=== PATIENT | male | born 1980 | race African-American/Black ===

== ENCOUNTER 2021-10-21 17:24 | Emergency (ER) | payer SELFPAY ==
[~2021-10-21] VITALS: Ht 185.4 cm; Wt 109.0 kg
[2021-10-21 17:27] VITALS: BP 170/115
[2021-10-21] MEDS ORDERED: AMLO2.5T45 MT (19:19)
== END 2021-10-21 19:34 | disposition home or self-care (01) ==
LOC: ER 17:24
DX: I10 Essential (primary) hypertension (principal); R06.02 Shortness of breath
CPT/HCPCS: 99283

== ENCOUNTER 2024-11-09 00:21 | Emergency (ER) | payer BC, MEDICAID ==
[~2024-11-09] VITALS: Ht 180.3 cm; Wt 102.0 kg
[~2024-11-09 00:21] MED LIST: AMLO2.5T45 MT
[2024-11-09 00:30] VITALS: O2SAT 100
[2024-11-09] MEDS: GUAIFENESIN 600MG ER TABLET PO SCH (00:48)
[2024-11-09] MEDS ORDERED: OXYM30SP26 BOTHNSTRLS (01:34)
[2024-11-09] MEDS ORDERED: AMOX1TAB16 MT (01:35)
[2024-11-09 01:49] LABS: INFLUENZA TYPE A Presumptive Negative (Pres. Neg.)
[2024-11-09 01:51] LABS: INFLUENZA TYPE B Presumptive Negative (Pres. Neg.)
[2024-11-09 02:05] VITALS: BP 115/74; PULSE 60; RESP 18; TEMP 36.8; O2SAT 100
== END 2024-11-09 02:05 | disposition home or self-care (01) ==
LOC: ER 00:21
DX: J32.9 Chronic sinusitis, unspecified (principal)
CPT/HCPCS: 71045; 87426; 87804; 99284